=== PATIENT | male | born 1970 | race Caucasian/White ===

== ENCOUNTER 2024-03-17 20:50 | Emergency (ER) | payer OTHER ==
[~2024-03-17] VITALS: Ht 188 cm; Wt 101.2 kg
[2024-03-17 21:46] VITALS: BP 160/85; TEMP 101.4; O2SAT 97
[2024-03-17] MEDS ORDERED: ACETAMINOPHEN 325 MG TABLET ONE (22:19)
[2024-03-17] MEDS: ACETAMINOPHEN 325 MG TABLET PO ONE (22:21)
[2024-03-17] MEDS ORDERED: AMOX-430 PO (23:08)
[2024-03-17] MEDS: AMOX/CLAVULANATE 875 MG TABLET PO ONE (23:30)
== END 2024-03-18 00:57 | disposition home or self-care (01) ==
LOC: ER 21:00
DX: J02.9 Acute pharyngitis, unspecified (principal); I10 Essential (primary) hypertension; Z79.899 Other long term (current) drug therapy; Z20.822 Contact with and (suspected) exposure to COVID-19
CPT/HCPCS: 86403-TC; 87070-TC